=== PATIENT | male | born 1950 | race Caucasian/White ===

== ENCOUNTER 2017-01-04 19:57 | Emergency (ER) | payer MEDICARE, BC ==
[2017-01-04 21:16] VITALS: BP 146/78
--- NOTE | 2017-01-04 21:48 | EDM.PDOC ---
[id number] Complaint: BOARD FELL ON RIGHT FOOT Time Seen by Provider: 01/04/17 21:25 Source of Information: Reports: Patient, Family History Limitations: Reports: No Limitations - History of Present Illness INITIAL COMMENTS - FREE TEXT/NARRATIVE: 66-year-old male dropped a 2 x 4 on the top of his right foot 7 hours ago, he has bruising and swelling and pain with walking and wants it checked. Location: Reports: Lower Extremity, Right Worsens with: Reports: Other (Weightbearing) Context: Reports: Trauma Right Feet Pain Score (Numeric/FACES): 8 - Related Data Allergies Allergy/AdvReac Type Severity Reaction Status Date / Time No Known Allergies Allergy Verified 01/04/17 21:15 Home Meds: Home Meds Acetaminophen [Tylenol] 1,300 mg PO Q4H PRN 05/15/16 [History] Metoprolol Tartrate [Metoprolol Tartrate] 25 mg PO BID 05/15/16 [History] amLODIPine Besylate [Amlodipine Besylate] 2.5 mg PO DAILY 05/15/16 [History] atorvaSTATin [Lipitor] 10 mg PO BEDTIME 05/15/16 [History] Past Medical History HEENT History: Reports: Impaired Vision Other HEENT History: recent tooth extraction 05/13/16 Cardiovascular History: Reports: High Cholesterol, Hypertension Musculoskeletal History: Reports: Osteoarthritis Oncologic (Cancer) History: Reports: Malignant Melanoma Other Oncologic History: 4-5 yrs ago - Infectious Disease History Infectious Disease History: Reports: Chicken Pox, Mumps - Past Surgical History GI Surgical History: Reports: Colonoscopy Social & Family History - Tobacco Use Smoking Status *Q: Never Smoker Second Hand Smoke Exposure: No - Caffeine Use Caffeine Use: Reports: Coffee - Alcohol Use Days Per Week of Alcohol Use: 7 Number of Drinks Per Day: 3 Total Drinks Per Week: 21 - Recreational Drug Use Recreational Drug Use: No Review of Systems - Review of Systems Review Of Systems: See Below Respiratory: Denies: Shortness of Breath Cardiovascular: Denies: Chest Pain GI/Abdominal: Denies: Abdominal Pain Skin: Reports: Bruising Neurological: Reports: No Symptoms Psychiatric: Reports: No Symptoms ED EXAM, GENERAL - Physical Exam Exam: See Below Exam Limited By: No Limitations General Appearance: Alert, No Apparent Distress Respiratory/Chest: No Respiratory Distress Cardiovascular: Regular Rate, Rhythm Extremities: Other (Exam is otherwise limited to the lower extremities. The patient has tenderness, bruising, and swelling over the top of the right foot at the base of the toes. He has some palpation tenderness to the arch of the foot as well. No tenderness around the ankle.) Course - Vital Signs Last Recorded V/S: Last Vital Signs Temp 98.0 F 01/04/17 21:19 Pulse 76 01/04/17 21:19 Resp 16 01/04/17 21:19 BP 146/78 H 01/04/17 21:19 Pulse Ox 97 01/04/17 21:19 - Orders/Labs/Meds Orders: Active Orders 24 hr Category Date Time Status Foot Comp Min 3V Rt [CR] Stat Exams 01/04/17 21:26 Taken - Re-Assessments/Exams Free Text/Narrative Re-Assessment/Exam: 01/04/17 21:56 An x-ray of the foot show some arthritis but no acute findings such as fracture. A three-inch Misbah wrap was applied to the foot which the patient felt improved his symptoms. He declined crutches at this time. He will take an anti- inflammatory, elevate the foot, use the wrap and increase activity as tolerated. Departure - Departure Time of Disposition: 22:04 Disposition: Home, Self-Care 01 Condition: Good Clinical Impression: Contusion of foot, right Qualifiers: Encounter type: initial encounter Qualified Code(s): S90.31XA - Contusion of right foot, initial encounter - Discharge Information Instructions: Contusion, [id number] Referrals: Elvira Magdaleno NP [Primary Care Provider] - Forms: ED Department Discharge Care Plan Goals: Wrap foot for comfort, ice and elevation may help. Increase activity as tolerated. Ibuprofen or naproxen may be beneficial as well. Recheck in 4-6 days if not improving satisfactorily. - My Orders Last 24 Hours: My Active Orders 01/04/17 21:26 Foot Comp Min 3V Rt [CR] Stat - Assessment/Plan Last 24 Hours: My Active Orders 01/04/17 21:26 Foot Comp Min 3V Rt [CR] Stat
--- NOTE | 2017-01-05 09:17 | CR ---
Foot Comp Min 3V Rt HISTORY: Trauma COMPARISON: None FINDINGS: Severe degenerative change in the first MTP joint. No acute fracture. Moderate spur inferi or calcaneus.
== END 2017-01-04 22:04 | disposition home or self-care (01) ==
LOC: JP.ED 19:57
DX: S90.31XA Contusion of right foot, initial encounter (principal); M19.90 Unspecified osteoarthritis, unspecified site; I10 Essential (primary) hypertension; E78.00 Pure hypercholesterolemia, unspecified; Z79.899 Other long term (current) drug therapy; W20.8XXA Other cause of strike by thrown, projected or falling object, initial encounter
CPT/HCPCS: 73630-26-RT; 73630-RT; 99282; 99284